=== PATIENT | male | born 1945 | race Caucasian/White ===

== ENCOUNTER 2018-12-04 14:17 | Inpatient (IN) | payer OTHER ==
[2018-12-04] MEDS ORDERED: NS 500 ML IV ONE (14:22)
--- NOTE | 2018-12-04 14:22 | EDPHY ---
HPI/HX/ROS/PE/MDM Narrative: CHIEF COMPLAINT: Chest pressure HPI: This patient is a 73 y/o male with history of hypertension. He arrives today via EMS complaining of sudden onset chest pressure this afternoon following exertion. He states this feels like he has "a large gas burp high in my chest" as well as a dull pain in his chest which radiates towards his back. This is 5/ 10 in severity. He endorses associated shortness of breath. He tried to lie down and rest but this did not relieve his pain. He took 325mg PO ASA at home and called EMS. On EMS arrival, he was tachycardic and hypertensive. EMS administered sublingual nitro as well as 1 of nitro tape. This did help to relieve the patient's symptoms. He denies any known cardiac history. He has never had a stress test in the past. He notes he did have a similar episode two days ago associated with exertion, after which his symptoms resolved spontaneously. REVIEW OF SYSTEMS: A comprehensive 10 system review of systems is otherwise negative aside from elements mentioned in the history of present illness and medical decision making. PMH: Hypertension (lisinopril). Gastric ulcer (omeprazole). SOCIAL HISTORY: . Employed. Lives in [place]. PHYSICAL EXAM: General:Patient is alert, in no acute distress. ENT:Eyes are normal to inspection. ENT inspection normal. Neck: Normal inspection. Full range of motion. Respiratory:No respiratory distress. Breath sounds normal bilaterally. Cardiovascular: Regular rate and rhythm. Strong peripheral pulses. Normal cap refill. Abdomen:The abdomen is nontender to palpation. There are no peritoneal signs. There are normal bowel sounds. Back: Normal to inspection. No tenderness to palpation. Skin: Normal color. No rash. Warm and dry. Extremities: Normal appearance. Full range of motion. Neuro: Oriented x3. Normal motor function. Normal sensory function. ED Course: 73 y/o male presents with chest pressure which began following exertion this afternoon. Symptoms relieved with nitro. He is well-appearing on exam. Plan for EKG, chest x-ray, labs including CBC, chemistries, POC troponin. EKG was ordered and interpreted by myself. Please see [facility] system for official reading. Reviewed laboratory studies. These are largely unremarkable. POC troponin negative at 0.00. Chest x-ray is negative for acute processes. 15:02 Reassessed patient. Discussed negative cardiac workup so far. Discussed admission vs. outpatient cardiology followup. He prefers admission for continued cardiac evaluation. I concur with this. Plan to admit for chest pain workup, will consult with hospitalist service. 15:15 Spoke with hospitalist service. Dr. Hollis accepts admission for chest pain. - Data Points Imaging Results: Imaging Impressions Chest X-Ray 12/04/18 14:22 Impression: Mild peribronchial thickening which can be seen with airways disease /bronchitis or mild fluid overload. Imaging: I viewed and interpreted images myself Laboratory Results: Laboratory Results 12/04/18 14:17 12/04/18 14:17 12/04/18 12/04/18 12/04/18 14:33 14:17 14:17 WBC 9.80 10^3/uL H 10^3/uL (3.80-9.50) RBC 5.08 10^6/uL 10^6/uL (4.40-6.38) Hgb 16.1 g/dL g/dL (13.7-17.5) Hct 47.1 % % (40.0-51.0) MCV 92.7 fL fL (81.5-99.8) MCH 31.7 pg pg (27.9-34.1) MCHC 34.2 g/dL g/dL (32.4-36.7) RDW 13.8 % % (11.5-15.2) Plt Count 204 10^3/uL 10^3/uL (150-400) MPV 9.7 fL fL (8.7-11.7) Neut % (Auto) 62.0 % % (39.3-74.2) Lymph % (Auto) 26.5 % % (15.0-45.0) [place] % (Auto) 8.4 % % (4.5-13.0) Eos % (Auto) 2.0 % % (0.6-7.6) Baso % (Auto) 0.8 % % (0.3-1.7) Nucleat RBC Rel Count 0.0 % % (0.0-0.2) Absolute Neuts (auto) 6.07 10^3/uL 10^3/uL (1.70-6.50) Absolute Lymphs (auto) 2.60 10^3/uL 10^3/uL (1.00-3.00) Absolute Monos (auto) 0.82 10^3/uL H 10^3/uL (0.30-0.80) Absolute Eos (auto) 0.20 10^3/uL 10^3/uL (0.03-0.40) Absolute Basos (auto) 0.08 10^3/uL 10^3/uL (0.02-0.10) Absolute Nucleated RBC 0.00 10^3/uL 10^3/uL (0-0.01) Immature Gran % 0.3 % % (0.0-1.1) Immature Gran # 0.03 10^3/uL 10^3/uL (0.00-0.10) Sodium 139 mEq/L mEq/L (135-145) Potassium 3.8 mEq/L mEq/L (3.5-5.2) Chloride 108 mEq/L mEq/L (97-110) Carbon Dioxide 19 mEq/l L mEq/l (22-31) Anion Gap 12 mEq/L mEq/L (6-14) BUN 16 mg/dL mg/dL (7-23) Creatinine 1.2 mg/dL mg/dL (0.7-1.3) Estimated GFR 59 Glucose 92 mg/dL mg/dL (70-100) Calcium 9.4 mg/dL mg/dL (8.5-10.4) POC Troponin I 0.00 ng/mL ng/mL (0.00-0.08) Medications Given: Discontinued Medications Sodium Chloride (Ns) 500 mls @ 0 mls/hr IV EDNOW ONE; Wide Open PRN Reason: Protocol Stop: 12/04/18 14:23 Last Admin: 12/04/18 14:41 Dose: 500 mls Point of Care Test Results: Chemistry 12/04/18 14:33 POC Troponin I 0.00 ng/mL ng/mL (0.00-0.08) General Initial Vital Signs: Initial Vital Signs Temperature (C) 37 C 12/04/18 14:31 Heart Rate 90 12/04/18 14:31 Respiratory Rate 16 12/04/18 14:31 Blood Pressure 122/84 H 12/04/18 14:31 O2 Sat (%) 95 12/04/18 14:31 O2 Delivery Mode Room Air Allergies/Adverse Reactions: No Known Allergies Allergy (Verified 06/03/12 20:41) Home Medications: Medication Instructions Recorded Aspirin EC [Aspirin EC 325 mg (*)] 325 mg PO ONCE PRN 12/04/18 Lisinopril [Lisinopril] 10 mg PO Q2D 12/04/18 Lisinopril [Lisinopril] 20 mg PO Q2D 12/04/18 Omeprazole 20 mg PO DAILY06 12/04/18 Departure - Departure Disposition: [facility] Inpatient Acute Clinical Impression: Chest pain Qualifiers: Chest pain type: other chest pain Qualified Code(s): R07.89 - Other chest pain Condition: Fair Report Scribed for: Satnam Gillis Report Scribed by: Hortencia Vasquez Date of Report: 12/04/18 Time of Report: 15:00 Physician Review and Approval Statement: Portions of this note were transcribed by an ED scribe. I personally performed the history, physical exam, and medical decision making; and confirm the accuracy of the information in the transcribed note.
[2018-12-04 14:40] LABS: PLATELET COUNT 204 10^3/uL (150-400)
--- NOTE | 2018-12-04 15:12 | CPEKG ---
Test Reason : OPEN Blood Pressure : / mmHG Vent. Rate : 079 BPM Atrial Rate : 079 BPM P-R Int : 151 ms QRS Dur : 087 ms QT Int : 404 ms P-R-T Axes : 033 -87 016 degrees QTc Int : 464 ms Sinus rhythm Inferior infarct, old Confirmed by Satnam Gillis ([id number]) on 12/04/2018 3:11:59 PM Referred By: Satnam Gillis Confirmed By:Satnam Gillis
[2018-12-04] MEDS ORDERED: ONDANSETRON DISINTEGRATING 4 MG TAB PO PRN (16:03)
[2018-12-04] MEDS ORDERED: ACETAMINOPHEN 325 MG TAB PO PRN (16:03)
[2018-12-04] MEDS ORDERED: ONDANSETRON 4 MG/2 ML VIAL IVP PRN (16:03)
[2018-12-04] MEDS ORDERED: NITROGLYCERIN 0.4 MG BTL SL PRN (16:05)
--- NOTE | 2018-12-04 16:17 | PDGENHP ---
History and Physical - Chief Complaint Chest pain - History of Present Illness This is a 73 y/o male w/hx of hypertension and gastric ulcers presenting w/mid- sternal chest pain and associated shortness of breath. He does not have a cardiac history. He reports 2 days prior, he was shoveling gravel when he felt chest pressure and SOB w/mild dizziness and overall weakness. He stopped shoveling gravel but continued on doing something less strenuous and his symptoms resolved after 20 minutes or so. Yesterday, he was exerting himself again and similar symptoms occurred. Today once again exerting himself and felt like he wanted to lie down but his symptoms this time did not alleviate so his called 911 and gave him ASA 325mg. EMS found him to be hypertensive and tachycardiac; he received nitroglycerin sublingual and paste - his symptoms resolved and he is currently CP free and not SOB. He has never experienced these symptoms before. First troponin and EKG unremarkable. Denies nausea, vomiting, fevers, chills, cough. He is being admitted for further testing and monitoring. History Information - Allergies/Home Medication List Allergies/Adverse Reactions: No Known Allergies Allergy (Verified 06/03/12 20:41) Home Medications: Aspirin EC [Aspirin EC 325 mg (*)] 325 mg PO ONCE PRN 12/04/18 [Last Taken 12/04 09:00] Lisinopril [Lisinopril] 10 mg PO Q2D 12/04/18 [Last Taken 12/03/18 06:00] Lisinopril [Lisinopril] 20 mg PO Q2D 12/04/18 [Last Taken 12/04/18 06:00] Omeprazole 20 mg PO DAILY06 12/04/18 [Last Taken 12/04/18 06:00] I have personally reviewed and updated: family history, medical history, social history, surgical history - Past Medical History GI bleed (s/p gastric ulcers), hypertension - Surgical History Reports: no pertinent surgical hx - Family History Additional family history: Mother had atrial fibrillation - Social History Smoking Status: Never smoked (However is constantly around people who do smoke cigarettes) Alcohol Use: Rarely Drug Use: None Additional social history: . Lives in [place]. 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 Review of Systems Review of Systems: ROS: 10pt was reviewed & negative except for what was stated in HPI & below Physical Exam Physical Exam: Lab data and imaging were reviewed. CXR: neg for acute processes EKG: SR, left axis deviation Troponin: 0.00 Temp Pulse Resp BP Pulse Ox 37 C 90 16 122/84 H 95 12/04/18 14:31 12/04/18 14:31 12/04/18 14:31 12/04/18 14:31 12/04/18 14:31 Constitutional: no apparent distress, appears nourished, not in pain Eyes: PERRL, anicteric sclera, EOMI Ears, Nose, Mouth, Throat: moist mucous membranes, hearing normal, ears appear normal, no oral mucosal ulcers Cardiovascular: regular rate and rhythym, no murmur, rub, or gallop, No edema Peripheral Pulses: 2+: dorsalis-pedis (R), dorsalis-pedis (L) Respiratory: no respiratory distress, no rales or rhonchi, clear to auscultation Gastrointestinal: normoactive bowel sounds, soft, non-tender abdomen, no palpable masses Genitourinary: no bladder fullness, no bladder tenderness Skin: warm, normal color, no rashes or abrasions, no fluctuance, no induration, No mottled Musculoskeletal: full muscle strength, no muscle tenderness, normal joint ROM, no joint effusions Neurologic: AAOx3, sensation intact bilaterally, CN II-XII Intact Psychiatric: interacting appropriately, not anxious, not encephalopathic, thought process linear Lymph, Heme, Immunologic: no cervical LAD, no supraclavicular LAD Lab Data & Imaging Review 12/04/18 14:17 12/04/18 14:17 WBC 9.80 10^3/uL (3.80-9.50) H 12/04/18 14:17 RBC 5.08 10^6/uL (4.40-6.38) 12/04/18 14:17 Hgb 16.1 g/dL (13.7-17.5) 12/04/18 14:17 Hct 47.1 % (40.0-51.0) 12/04/18 14:17 MCV 92.7 fL (81.5-99.8) 12/04/18 14:17 MCH 31.7 pg (27.9-34.1) 12/04/18 14:17 MCHC 34.2 g/dL (32.4-36.7) 12/04/18 14:17 RDW 13.8 % (11.5-15.2) 12/04/18 14:17 Plt Count 204 10^3/uL (150-400) 12/04/18 14:17 MPV 9.7 fL (8.7-11.7) 12/04/18 14:17 Neut % (Auto) 62.0 % (39.3-74.2) 12/04/18 14:17 Lymph % (Auto) 26.5 % (15.0-45.0) 12/04/18 14:17 [place] % (Auto) 8.4 % (4.5-13.0) 12/04/18 14:17 Eos % (Auto) 2.0 % (0.6-7.6) 12/04/18 14:17 Baso % (Auto) 0.8 % (0.3-1.7) 12/04/18 14:17 Nucleat RBC Rel Count 0.0 % (0.0-0.2) 12/04/18 14:17 Absolute Neuts (auto) 6.07 10^3/uL (1.70-6.50) 12/04/18 14:17 Absolute Lymphs (auto) 2.60 10^3/uL (1.00-3.00) 12/04/18 14:17 Absolute Monos (auto) 0.82 10^3/uL (0.30-0.80) H 12/04/18 14:17 Absolute Eos (auto) 0.20 10^3/uL (0.03-0.40) 12/04/18 14:17 Absolute Basos (auto) 0.08 10^3/uL (0.02-0.10) 12/04/18 14:17 Absolute Nucleated RBC 0.00 10^3/uL (0-0.01) 12/04/18 14:17 Immature Gran % 0.3 % (0.0-1.1) 12/04/18 14:17 Immature Gran # 0.03 10^3/uL (0.00-0.10) 12/04/18 14:17 Sodium 139 mEq/L (135-145) 12/04/18 14:17 Potassium 3.8 mEq/L (3.5-5.2) 12/04/18 14:17 Chloride 108 mEq/L (97-110) 12/04/18 14:17 Carbon Dioxide 19 mEq/l (22-31) L 12/04/18 14:17 Anion Gap 12 mEq/L (6-14) 12/04/18 14:17 BUN 16 mg/dL (7-23) 12/04/18 14:17 Creatinine 1.2 mg/dL (0.7-1.3) 12/04/18 14:17 Estimated GFR 59 12/04/18 14:17 Glucose 92 mg/dL (70-100) 12/04/18 14:17 Calcium 9.4 mg/dL (8.5-10.4) 12/04/18 14:17 POC Troponin I 0.00 ng/mL (0.00-0.08) 12/04/18 14:33 Assessment & Plan Plan: 73 y/o male presenting w/ exertional chest pressure w/associated shortness of breath and dizziness, prior alleviated w/ rest however today did not alleviate. He was given nitro sublingual + paste which did alleviate his CP. He is asymptomatic now. His vital signs are: BP 122/84, HR 90, Resp 16, 37.0c, 95% RA. Differential diagnoses include but not limited to: stable angina, ACS, PE. #Chest pain w/exertion: Heart score 4 (age, moderately suspicious, risk factors) . -Cycle trop Q6H x 2 -Cycle EKG Q6H x 1, then PRN if symptomatic -Cont tele/PCU monitoring -Nitro PRN if symptomatic -Lipid panel in AM -I considered PE however this seems unlikely based on his clinical presentation and symptoms and EKG. -If above negative, will stress test in AM -Consider cards consult however if above negative, may follow up outpatient #HTN: on lisinopril. #Gastric ulcers: No issues, no acid reflux or indication of bleeding ulcer. On omeprazole Diet: Cardiac, NPO at midnight tonight VTE ppx: SCDs Code: Full Dispo: Admit to obs
[2018-12-04] MEDS ORDERED: MAG HYDROX/AL HYDROX/SIMETH 30 ML UDCUP PO ONE (17:08)
[2018-12-04] MEDS ORDERED: LIDOCAINE 2% VISCOUS 15 ML UDCUP PO ONE (17:08)
[2018-12-04] MEDS ORDERED: HYOSCYAMINE SULFATE 0.125 MG TAB PO ONE (17:08)
--- NOTE | 2018-12-04 17:10 | HOSPPROG ---
Hospitalist Progress Note Assessment/Plan: I have personally seen and evaluated Satnam Lake. I agree with the assessment and plan as outline by [employer] OPERATOR Brandy Castro, in a separate note. Initial Troponin was negative, repeat 2.96. Spoke with construction supervisor brake adjuster, Dr. Madrid, recommended Heparin gtt, Metoprolol 25 mg BID, NPO after midnight for LHC tomorrow AM. If patient has recurrence of chest pain, call cardiology for emergent/urgent LHC. Objective: Vital Signs Temp Pulse Resp BP Pulse Ox 36.7 C 67 18 130/83 H 97 12/04/18 16:36 12/04/18 16:36 12/04/18 16:36 12/04/18 16:36 12/04/18 16:36 ICD10 Worksheet Patient Problems: Problems Problem Status Onset Chest pain Acute
[2018-12-04] MEDS ORDERED: HEPARIN 10,000 UNIT/10 ML MDV (1,000 UNIT/ML) IVP ONE (21:26)
[2018-12-04] MEDS ORDERED: HEPARIN 10,000 UNIT/10 ML MDV (1,000 UNIT/ML) IVP PRN (21:26)
[2018-12-04] MEDS ORDERED: HEPARIN/DEXTROSE 500 ML IV SCH (21:30)
[2018-12-04 21:55] LABS: PLATELET COUNT 184 10^3/uL (150-400)
[2018-12-04 22:05] LABS: INR 1.02 (0.83-1.16)
[2018-12-04] MEDS: METOPROLOL TARTRATE 25 MG TAB PO SCH (22:30)
[2018-12-05 05:35] LABS: PLATELET COUNT 159 10^3/uL (150-400)
[2018-12-05] MEDS ORDERED: PANTOPRAZOLE SODIUM 40 MG TAB PO SCH (06:00)
--- NOTE | 2018-12-05 07:39 | PDPROPOC ---
Sedation Plan of Care Sedation Plan of Care: mental status noted, patient educated of risks, benefits , alternatives, patient can tolerate sedation ASA Classification: ASA 2 Planned drugs: fentanyl, midazolam Mallampati Score: Class 2 Mallampati Reference Image: Patient passed 3-3-2 rule?: Yes
--- NOTE | 2018-12-05 07:40 | PDHPUP ---
History & Physical Update H&P update statement: This history and physical update is based on an assessment of the patient which was completed after admission or registration (within 24 hours), but prior to the surgery/procedure. H&P update: H&P reviewed & patient examined, no change in patient's condition since H&P completed
[2018-12-05] MEDS ORDERED: NS 1,000 ML IV ONE (08:02)
[2018-12-05] MEDS ORDERED: FAMOTIDINE 20 MG TAB PO ONE (08:02)
[2018-12-05] MEDS ORDERED: DIAZEPAM 5 MG TAB PO ONE (08:02)
[2018-12-05] MEDS ORDERED: ASPIRIN EC 325 MG TAB PO ONE (08:02)
[2018-12-05] MEDS ORDERED: diphenhydrAMINE 25 MG CAP PO ONE (08:02)
--- NOTE | 2018-12-05 08:09 | GCON ---
[f rep st] CONSULTATION CARDIOLOGY CONSULT DATE OF CONSULTATION: 12/04/2018 CHIEF COMPLAINT: Chest pain. HPI: This is a 73-year-old male with a history of hypertension and GERD who presents to [facility] with com plaints of midsternal chest pain associated with shortness of breath radiating to his left arm. The patient denies any prior cardiac history. The patient indicates that this pain did start, initially, 2 days prior to the presentation when he was shoveling gravel. He continued to proceed with this, t anh, as the pain did resolve with rest. However, yesterday, and going to today, the patient's pain started coming on with less exertion. The patient came to the emergency room where he was found to be hypertensive and tachycardic, received nitroglycerin. The chest pain did resolve, but he does ind icate, with exertion, he does get the discomfort back again. His troponin was normal, initially, but then moris to 2.9. Of note, his ECG did not show any acute ST changes. Currently, the patient is on a heparin drip and denies any current pain. PAST MEDICAL HISTORY: GERD, hypertension. HOME MEDICATIONS: 1. Aspirin. 2. Lisinopril. 3. Omeprazole. SOCIAL HISTORY: Occasional alcohol. No smoking. . Works and lives in [place]. FAMILY HISTORY: Apparently, there is a history of arrhythmia in the maternal side. REVIEW OF SYSTEMS: The patient, currently, denies any visual changes. No neck pain and no ear pain. No head pain and no throat pain. No current shortness of breath. No current chest pain. No back pain. No lower extremity pain. No abdominal pain. PHYSICAL EXAMINATION: VITAL SIGNS: Afebrile at 96, blood pressure 130/70. The heart rate is 72, re spiratory rate is 12. Saturating 95% on room air. HEENT: Pupils equal and reactive to light and ac commodation. Extraocular movements intact. CARDIOVASCULAR: Regular rate and rhythm. S1, S2. LUNG S: Clear to auscultation bilaterally. ABDOMEN: Soft, nontender. No guarding. EXTREMITIES: No cl ubbing, no cyanosis, no edema. NEUROLOGIC: The patient is alert and oriented x3. DATA REVIEWED: Laboratory values currently show white cells 8.6, hemoglobin 13.8, hematocrit 40.7, p latelet count of 159. Creatinine of 1.1, potassium 3.8. LDL cholesterol 112. Troponin of 1.2. ASSESSMENT/PLAN: 1. Chest pain/[id number] myocardial infarction. 2. At this time, the patient appears to have classic anginal symptoms with elevated troponin levels. I feel we should proceed with a left heart catheterization for further delineation of underlying co ronary anatomy but will obtain an echocardiogram prior to the catheterization. I explained the risks /complications of the procedure, including bleeding, infection, stroke and possible , and the pa tient would like to proceed. Further orders following clinical course. /[id number]/MODL
[2018-12-05] MEDS ORDERED: LIDOCAINE 1% 300 MG/30 ML SDV ONE (08:38)
[2018-12-05] MEDS ORDERED: fentaNYL 100 MCG/2 ML INJ ONE ×2 (08:38→13:44)
[2018-12-05] MEDS ORDERED: IOPAMIDOL (ISOVUE-370) 150 ML BTL IV ONE (08:38)
[2018-12-05] MEDS ORDERED: MIDAZOLAM 2 MG/2 ML VIAL ONE (08:38)
[2018-12-05] MEDS ORDERED: EPINEPHrine 1 MG/10 ML SYR IVP ONE (08:43)
[2018-12-05] MEDS ORDERED: ATROPINE SULFATE 1 MG/10 ML SYR ONE (08:43)
[2018-12-05] MEDS ORDERED: BIVALIRUDIN 250 MG/5 ML VIAL IV ONE (08:43)
[2018-12-05] MEDS ORDERED: ASPIRIN EC 81 MG TAB PO SCH (09:00)
[2018-12-05] MEDS ORDERED: LISINOPRIL 20 MG TAB PO SCH (09:00)
[2018-12-05] MEDS ORDERED: CLOPIDOGREL BISULFATE 75 MG TAB ONE (09:22)
--- NOTE | 2018-12-05 10:27 | ECHO ---
[email or web address] [address] [address] Main: [phone] Echocardiography Examination Transthoracic Name: TERRANCE JARQUIN MR#: [id number] Study Date: 12/05/2018 Study Time: 07:56 AM Date of : 1945 Age: 73 year(s) Height: 170.2 cm (67 in.) Weight: 90.27 kg (199 lb.) BSA: 2.02 m2 Gender: Male Examination: Echo Contrast: Image Quality: Adequate Rhythm: Heart Rate: BP: 90 mmHg/61 mmHg Indication: Chest Pain Procedure Staff Referring Physician: Central Services Tech: Nadine Karimi RDCS Reading Physician: Rosalio Madrid MD Requesting Provider: Indication: Chest Pain Measurements Chambers AV/MV Label Value Normal Value Label Value Normal Value LVOTd 1.9 cm (1.9cm - 2.1cm) AV PGmean 3 mmHg LVOT VTI 15.1 cm (18cm - 22cm) MARCE (VTI) 2.3 cm2 LVDd, 2D 3.7 cm (4.2cm - 5.9cm) MV E Vmax 0.89 m/s LVDs, 2D 2.5 cm (2.1cm - 4cm) MV A Vmax 0.78 m/s IVSd, 2D 1 cm (0.6cm - 1.1cm) MV E/A 1.14 LVPWd, 2D 0.9 cm (0.6cm - 1cm) MV E/E' lateral 8.9 LVEF, 2D 63 % (54% - 74%) MV E/E' septal 11.4 (0.45 - 1.25) LVOT PGmean 2 mmHg MV DT 218 ms LVOT Vmean 0.62 m/s MV E' septal 0.08 m/s RVDd, 2D 2.9 cm (1.9cm - 3.8cm) MV PHT 0.07 s LA Volume, BP 34 ml (18ml - 58ml) MVA PHT 3.2 cm2 LADs, 2D 3 cm (3cm - 4cm) MV E' lateral 0.1 m/s LAESV index, BP 16.8 ml/m2 MV E/E' mean 9.89 RA Area 12.4 cm2 MV PHT 68 ms Additional Vessels MV E' mean 0.09 m/s Label Value Normal Value TV/PV AoAsc 3 cm Label Value Normal Value AoRoot, 2D 3.2 cm (1.4cm - 2.6cm) RA Pressure 5 mmHg IVC 1.9 cm (1.2cm - 2.3cm) RVSP 27 mmHg TR Pmax 22 mmHg Patient: TERRANCE CURRENT Study Date: 12/05/2018 Page 1 of 2 07:56 AM TR Vmax 2.35 m/s PV PGmax 1 mmHg PV Vmax, Caliper 0.58 m/s (0.6m/s - 0.9m/s) Conclusions Normal left ventricular size and function. LVEF estimated at 55-60%. Normal left ventricular free wall thickness. Mild septal hypokinesis. Normal-appearing valvular structures. Mild mitral regurgitation. Mild tricuspid regurgitation with a normal estimated RVSP. No prior studies. Findings Left Ventricle: Left ventricle is normal in size. Normal global systolic left ventricular function. EF range is estimated at 55 % - 60 %. Left ventricle wall thickness is normal. Slight mid septal dyskinesis, possible apical hypokinesis. Right Ventricle: Normal size right ventricle. Right ventricular systolic function is normal. Left Atrium: The left atrium is normal in size. Right Atrium: The right atrium is normal in size. Mitral Valve: Mitral valve appears structurally normal. Mild mitral regurgitation. No mitral valve stenosis. Aortic Valve: Aortic leaflets are structurally normal. No significant aortic valve regurgitation. There is no aortic stenosis. Tricuspid Valve: Tricuspid valve leaflets are structurally normal. Mild tricuspid regurgitation. No tricuspid valve stenosis. Right Ventricular systolic pressure is measured at 27 mmHg. Pulmonary artery pressure normal. Pulmonic Valve: Pulmonic leaflets are structurally normal. Aorta: The aortic root size in 2D measures 3.2 cm. The ascending aorta measures 3.0 cm. Aorta Measurements AoRoot, 2D is 3.2 cm. IVC: The inferior vena cava is normal in size. Pericardium: No pericardial effusion. Exam Details Procedure Ordered: Echo Procedure Status: Routine study Image Quality: Adequate Facility Location: Cardiac Echo 1 (No Signature Object) Patient: TERRANCE JARQUIN Study Date: 12/05/2018 Page 2 of 2 07:56 AM [id number]
--- NOTE | 2018-12-05 10:47 | PDGENHP ---
History and Physical - Chief Complaint CAD - History of Present Illness 73M with unstable angina s/p LHC today revealing CAD in need of surgical revascularization. Pt currently in CVC with family, too sedated to answer questions, but resting comfortably with stable HD. History Information - Allergies/Home Medication List Allergies/Adverse Reactions: No Known Allergies Allergy (Verified 06/03/12 20:41) Home Medications: Aspirin EC [Aspirin EC 325 mg (*)] 325 mg PO ONCE PRN 12/04/18 [Last Taken 12/04 09:00] Lisinopril [Lisinopril] 10 mg PO Q2D 12/04/18 [Last Taken 12/03/18 06:00] Lisinopril [Lisinopril] 20 mg PO Q2D 12/04/18 [Last Taken 12/04/18 06:00] Omeprazole 20 mg PO DAILY06 12/04/18 [Last Taken 12/04/18 06:00] I have personally reviewed and updated: medical history, social history, surgical history - Past Medical History coronary artery disease, GI bleed (s/p gastric ulcers), hypertension - Surgical History Reports: no pertinent surgical hx - Family History Additional family history: Mother had atrial fibrillation - Social History Smoking Status: Never smoked (However is constantly around people who do smoke cigarettes) Alcohol Use: Rarely Drug Use: None Additional social history: . Lives in [place]. 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 Review of Systems Review of Systems: ROS: 10pt was reviewed & negative except for what was stated in HPI & below Constitutional: Reports: no symptoms EENMT: Reports: no symptoms Cardiac: Reports: no symptoms Respiratory: Reports: no symptoms Gastrointestinal: Reports: no symptoms Genitourinary: Reports: no symptoms Muscolosketal: Reports: no symptoms Skin: Reports: no symptoms Neurological: Reports: no symptoms Physical Exam Physical Exam: Temp Pulse Resp BP Pulse Ox 36.9 C 71 16 90/61 L 96 12/05/18 07:26 12/05/18 07:26 12/05/18 07:26 12/05/18 07:26 12/05/18 07:26 Constitutional: no apparent distress, appears nourished, not in pain Eyes: anicteric sclera Ears, Nose, Mouth, Throat: moist mucous membranes, hearing normal Cardiovascular: regular rate and rhythym Respiratory: no respiratory distress Gastrointestinal: soft, non-tender abdomen Skin: warm, normal color Musculoskeletal: full muscle strength Psychiatric: interacting appropriately, not anxious, other (mildy sedated ) Lab Data & Imaging Review 12/05/18 05:00 12/05/18 05:00 WBC 8.63 10^3/uL (3.80-9.50) 12/05/18 05:00 RBC 4.28 10^6/uL (4.40-6.38) L 12/05/18 05:00 Hgb 13.8 g/dL (13.7-17.5) 12/05/18 05:00 Hct 40.7 % (40.0-51.0) 12/05/18 05:00 MCV 95.1 fL (81.5-99.8) 12/05/18 05:00 MCH 32.2 pg (27.9-34.1) 12/05/18 05:00 MCHC 33.9 g/dL (32.4-36.7) 12/05/18 05:00 RDW 13.7 % (11.5-15.2) 12/05/18 05:00 Plt Count 159 10^3/uL (150-400) 12/05/18 05:00 MPV 9.3 fL (8.7-11.7) 12/05/18 05:00 Neut % (Auto) 62.9 % (39.3-74.2) 12/05/18 05:00 Lymph % (Auto) 24.3 % (15.0-45.0) 12/05/18 05:00 Limestone % (Auto) 9.5 % (4.5-13.0) 12/05/18 05:00 Eos % (Auto) 2.4 % (0.6-7.6) 12/05/18 05:00 Baso % (Auto) 0.7 % (0.3-1.7) 12/05/18 05:00 Nucleat RBC Rel Count 0.0 % (0.0-0.2) 12/05/18 05:00 Absolute Neuts (auto) 5.42 10^3/uL (1.70-6.50) 12/05/18 05:00 Absolute Lymphs (auto) 2.10 10^3/uL (1.00-3.00) 12/05/18 05:00 Absolute Monos (auto) 0.82 10^3/uL (0.30-0.80) H 12/05/18 05:00 Absolute Eos (auto) 0.21 10^3/uL (0.03-0.40) 12/05/18 05:00 Absolute Basos (auto) 0.06 10^3/uL (0.02-0.10) 12/05/18 05:00 Absolute Nucleated RBC 0.00 10^3/uL (0-0.01) 12/05/18 05:00 Immature Gran % 0.2 % (0.0-1.1) 12/05/18 05:00 Immature Gran # 0.02 10^3/uL (0.00-0.10) 12/05/18 05:00 PT 13.0 SEC (12.0-15.0) 12/04/18 21:46 INR 1.02 (0.83-1.16) 12/04/18 21:46 APTT 30.7 SEC (23.0-38.0) 12/04/18 21:46 Heparin Anti-Xa, Unfract 0.45 IU/mL (0.32-0.67) 12/05/18 05:00 Sodium 139 mEq/L (135-145) 12/05/18 05:00 Potassium 3.8 mEq/L (3.5-5.2) 12/05/18 05:00 Chloride 113 mEq/L (97-110) H 12/05/18 05:00 Carbon Dioxide 18 mEq/l (22-31) L 12/05/18 05:00 Anion Gap 8 mEq/L (6-14) 12/05/18 05:00 BUN 16 mg/dL (7-23) 12/05/18 05:00 Creatinine 1.1 mg/dL (0.7-1.3) 12/05/18 05:00 Estimated GFR > 60 12/05/18 05:00 Glucose 92 mg/dL (70-100) 12/05/18 05:00 Calcium 8.4 mg/dL (8.5-10.4) L 12/05/18 05:00 Total Bilirubin 0.8 mg/dL (0.1-1.4) 12/05/18 05:00 AST 33 IU/L (17-59) 12/05/18 05:00 ALT 39 IU/L (21-72) 12/05/18 05:00 Alkaline Phosphatase 63 IU/L (38-126) 12/05/18 05:00 POC Troponin I 0.00 ng/mL (0.00-0.08) 12/04/18 14:33 Troponin I 1.220 ng/mL (0.000-0.034) H 12/05/18 05:00 Total Protein 5.7 g/dL (6.3-8.2) L 12/05/18 05:00 Albumin 3.1 g/dL (3.5-5.0) L 12/05/18 05:00 Triglycerides 115 mg/dL (40-150) 12/05/18 05:00 Cholesterol 172 mg/dL (140-220) 12/05/18 05:00 Cholesterol Risk Factr 1.0 (0.2-1.0) 12/05/18 05:00 LDL Cholesterol, Calc 112 mg/dL (80-100) H 12/05/18 05:00 LDL Risk Factor 1.0 (0.2-1.0) 12/05/18 05:00 VLDL Cholesterol 23 mg/dL (8-25) 12/05/18 05:00 Non-HDL Cholesterol 135 mg/dL (90-129) H 12/05/18 05:00 HDL Cholesterol 37 mg/dL (40-65) L 12/05/18 05:00 LDL/HDL Ratio 3.03 RATIO (1.00-3.64) 12/05/18 05:00 Cholesterol/HDL Ratio 4.65 RATIO (1.00-4.97) 12/05/18 05:00 Visualized and Interpreted Chest x-ray results: Yes Chest X-Ray results: no infiltrate Visualized and Interpreted imaging results: Yes Interpretation: see TTE and LHC reports in [facility] EKG Interpretation: Positive for: normal sinsus rhythm Assessment & Plan Plan: 73M with angina and severe 2-vessel CAD in need of surgical revascularization - Possible CABG this afternoon as per Dr. Mercado - NPO until decision made - Type/Screen and carotid u/s pending
--- NOTE | 2018-12-05 11:17 | ASMTCMCOM ---
CM Note CM Note Notes: Pts case discussed in tx rounds. Pt is a 73 y/o man admitted for chest pain. Pt is getting a cath. PT has been ordered and awaiting recommendations. Pt should be able to d/c without any needs. CM to follow. Plan: TBD Date Signed: 12/05/2018 11:16 AM Electronically Signed By:PHILIPPE Cowart
[2018-12-05] MEDS: METOPROLOL TARTRATE 25 MG TAB PO SCH (11:37)
--- NOTE | 2018-12-05 11:39 | CPIP ---
[f rep st] INVASIVE CARDIAC PROCEDURE DATE OF PROCEDURE: 12/05/2018 INDICATION FOR PROCEDURE: Non-ST segment elevation myocardial infarction. PROCEDURE: 1. Nonselective right groin sheathogram. 2. Bilateral coronary angiography. 3. Left heart catheterization. 4. Left ventriculogram. HISTORY: Briefly, this is a 73-year-old male with history of hypertension who was admitted for chest pain. The patient was found to have elevated troponin levels. Patient was consented for cardiac ca theterization. DESCRIPTION OF PROCEDURE: After informed consent, the patient was brought to [facility] where the right fawn in was prepped and draped in sterile fashion. Using lidocaine, a short 6-Libyan sheath in the right common femoral artery verified angiographically. Through this 6-Libyan sheath, a JL4 catheter was adv anced to the left coronary artery. Images of the left coronary artery revealed narrow, but patent os tial left main. Left circumflex artery was patent proximally; however, in the mid circumflex, there was a tubular 70% lesion distally. The vessel appeared to be largely patent. The LAD had a high-gra de, at least 70% hazy lesion right after the proximal takeoff. Just after the takeoff of this lesion , there was a heavily diseased, but large septal financial administrative assistant. In the mid LAD, there was another area of 80% to 90% tubular stenosis. Distally, the vessel had an area of 40% disease around the apical se gment, but otherwise was patent. After these images were obtained, the JL4 catheter was removed. The JR4 catheter was advanced to the right coronary artery. Images of the right coronary artery reve aled normal ostial, proximal RCA. RPD and RPLS had mild 20% to 30% disease, but otherwise was patent . Of note, there was the takeoff of a high conus branch, which had a 70% to 80% lesion in its mid po rtion. After these images were obtained, the JR4 catheter was removed. A pigtail catheter was advanced to left ventricle. EDP is 15 mmHg. Left ventriculogram in the LIU p rojection showed an EF of 65% with no wall motion abnormalities. No pullback gradient between the LV and aorta. Pigtail catheter was removed over the 0.035 wire. Right groin was closed with 6-Libyan Angio-Seal. The patient tolerated the procedure well with no complications. IMPRESSION: 1. Severe double-vessel coronary artery disease. 2. Normal ejection fraction. PLAN: Given the diffuse nature of the patient's LAD disease, including the proximal and mid section, as well as a large diseased septal perforators coming off the proximal LAD lesion, as well as the mi d left circumflex lesion, I feel the patient would be better suited with a surgical consultation, sec ondary to the fact that any PCI of the LAD could result in snow plow effect of plaque into the septal financial administrative assistant and shutting this vessel down. Additionally, the mid distal LAD lesion is a significant narrowing and does taper thus making stent sizing potentially difficult. We will have the patient ev aluated by CT Surgery later this morning and further orders to follow clinical course. /[id number]/MODL
[2018-12-05] MEDS ORDERED: VERAPAMIL 5 MG, NITROGLYCERIN 2.5 MG, HEPARIN 500 UNIT, SODIUM BICARBONATE 0.2 MEQ in L... MISC ONE (12:34)
[2018-12-05] MEDS ORDERED: MUPIROCIN 2% 22 GM OINT NS ONE (12:34)
[2018-12-05] MEDS ORDERED: CARDIOPLEGIC SOLUTION 1,052.8 ML PF ONE (12:34)
[2018-12-05] MEDS ORDERED: AMINOCAPROIC ACID 5 GM/20 ML VIAL IV ONE (12:34)
[2018-12-05] MEDS ORDERED: CITRATE DEXTROSE SOLN 500 ML BAG MISC ONE (12:34)
[2018-12-05] MEDS ORDERED: INSULIN REGULAR HUMAN 100 UNIT in NS 100 ML IV ONE (12:34)
[2018-12-05] MEDS ORDERED: PHENYLEPHRINE HCL 50 MG in NS 250 ML IV ONE (12:34)
[2018-12-05] MEDS ORDERED: NOREPINEPHRINE BITARTRATE 16 MG in NS 250 ML IV ONE (12:34)
[2018-12-05] MEDS ORDERED: MANNITOL 25% 12.5 GM/50 ML VIAL IVP ONE (12:34)
[2018-12-05] MEDS ORDERED: ceFAZolin 2 GM/DEXTROSE 100 ML IV ONE (12:34)
[2018-12-05] MEDS ORDERED: niCARdipine/NACL 200 ML IV ONE (12:36)
[2018-12-05] MEDS ORDERED: CHLORHEXIDINE GLUC HIBICLENS 118 ML BTL TP ONE (12:37)
[2018-12-05] MEDS ORDERED: PROTAMINE SULFATE 50 MG/5 ML VIAL IVP ONE (13:12)
[2018-12-05] MEDS ORDERED: ALBUMIN 5% 250 ML BOTTLE IV ONE ×2 (13:12→16:40)
[2018-12-05] MEDS ORDERED: MILRINONE/DEXTROSE/100 ML BAG IV ONE (13:12)
[2018-12-05] MEDS ORDERED: CALCIUM CHLORIDE 1 GM/10 ML INJ ONE (13:12)
[2018-12-05] MEDS ORDERED: HEPARIN 10,000 UNIT/10 ML MDV (1,000 UNIT/ML) ONE (13:13)
[2018-12-05] MEDS ORDERED: NA BICARBONATE 50 MEQ/50 ML VIAL ONE ×2 (13:13→17:51)
[2018-12-05] MEDS ORDERED: AMINOCAPROIC ACID 5 GM/20 ML VIAL ONE (13:13)
[2018-12-05] MEDS ORDERED: LIDOCAINE 2% 100 MG/5 ML SYR ONE ×2 (13:13→13:45)
[2018-12-05] MEDS ORDERED: ADENOSINE 6 MG/2 ML VIAL ONE (13:14)
[2018-12-05] MEDS ORDERED: methylPREDNISolone SOD SUCC 1 GM/8 ML VIAL ONE (13:14)
[2018-12-05] MEDS ORDERED: DOPamine/DEXTROSE 400 MG/250 ML BAG IV ONE (13:14)
[2018-12-05] MEDS ORDERED: niCARdipine/NACL/200 ML BAG IV ONE ×2 (13:14→17:06)
[2018-12-05] MEDS ORDERED: AMIODARONE HCL 150 MG/3 ML VIAL ONE (13:14)
[2018-12-05] MEDS ORDERED: CITRATE DEXTROSE SOLN 500 ML BAG ONE (13:14)
[2018-12-05] MEDS ORDERED: MAGNESIUM SULFATE 1 GM/2 ML VIAL ONE (13:14)
[2018-12-05] MEDS ORDERED: ceFAZolin 1 GM VIAL ONE (13:15)
[2018-12-05] MEDS ORDERED: NITROGLYCERIN/D5W 50 MG/250 ML BOTTLE IV ONE (13:15)
[2018-12-05] MEDS ORDERED: LR 1,000 ML IV ONE (13:16)
[2018-12-05] MEDS ORDERED: VERAPAMIL 5 MG/2 ML VIAL ONE (13:17)
[2018-12-05] MEDS ORDERED: PAPAVERINE HCL 60 MG/2 ML SDV ONE (13:17)
[2018-12-05] MEDS ORDERED: MINERAL OIL 10 ML VIAL ONE (13:17)
[2018-12-05] MEDS ORDERED: PROPOFOL/EMULSION 500 MG/50 ML BOTTLE IV ONE (13:44)
[2018-12-05] MEDS ORDERED: DEXAMETHASONE 4 MG/ML VIAL ONE ×2 (13:44)
[2018-12-05] MEDS ORDERED: REMIFENTANIL HCL 1 MG VIAL ONE (13:44)
[2018-12-05] MEDS ORDERED: ROCURONIUM 100 MG/10 ML VIAL ONE (13:44)
[2018-12-05] MEDS ORDERED: ONDANSETRON 4 MG/2 ML VIAL ONE (13:45)
[2018-12-05] MEDS ORDERED: LIDOCAINE HCL 160 MG/4 ML LTA KIT TP ONE (13:47)
[2018-12-05] MEDS ORDERED: SUGAMMADEX SODIUM 200 MG/2 ML VIAL IVP ONE (15:50)
[2018-12-05] MEDS ORDERED: DEXMEDETOMIDINE HCL 400 MCG in NS 100 ML IV SCH (16:00)
[2018-12-05] MEDS ORDERED: MEPERIDINE 25 MG/0.5 ML AMP IVP PRN (16:39)
[2018-12-05] MEDS ORDERED: ACETAMINOPHEN 650 MG SUPP PR PRN (16:39)
[2018-12-05] MEDS ORDERED: CEPACOL LOZENGE PO PRN (16:39)
[2018-12-05] MEDS ORDERED: ALBUMIN 5% 250 ML IV PRN (16:39)
[2018-12-05] MEDS ORDERED: LACTULOSE 20 GM/30 ML UDCUP PO PRN (16:39)
[2018-12-05] MEDS ORDERED: ACETAMINOPHEN 325 MG TAB PO PRN (16:39)
[2018-12-05] MEDS ORDERED: POLYETHYLENE GLYCOL 3350 17 GM PKT PO PRN (16:39)
[2018-12-05] MEDS ORDERED: PANTOPRAZOLE SODIUM 40 MG VIAL IVP ONE (16:39)
[2018-12-05] MEDS ORDERED: SODIUM CL NASAL 45 ML BTL EACHNARE PRN (16:39)
[2018-12-05] MEDS ORDERED: D50W 25 GM/50 ML SYR IVP PRN (16:39)
[2018-12-05] MEDS ORDERED: MAGNESIUM HYDROXIDE 30 ML UDCUP PO PRN (16:39)
[2018-12-05] MEDS ORDERED: METOCLOPRAMIDE 10 MG/2 ML VIAL IVP PRN (16:39)
[2018-12-05] MEDS ORDERED: BISACODYL 10 MG SUPP PR PRN (16:39)
[2018-12-05] MEDS ORDERED: NS 1,000 ML IV SCH (16:45)
[2018-12-05] MEDS ORDERED: INSULIN REGULAR HUMAN 100 UNIT in NS 100 ML IV SCH (17:00)
[2018-12-05] MEDS ORDERED: niCARdipine/NACL 200 ML IV SCH (17:30)
[2018-12-05] MEDS: fentaNYL 100 MCG/2 ML INJ IVP PRN (17:50)
[2018-12-05] MEDS ORDERED: NA BICARBONATE 50 MEQ/50 ML VIAL IV ONE ×2 (18:00→20:30)
[2018-12-05] MEDS ORDERED: ALBUMIN 5% 500 ML IV ONE (20:30)
[2018-12-05] MEDS: POTASSIUM Cl (KCl) 50 ML IV PRN ×2 (20:47→20:49)
--- NOTE | 2018-12-05 20:52 | HOSPPROG ---
Hospitalist Progress Note Assessment/Plan: DIAGNOSES: * Acute Coronary Syndrome * Diffuse CAD * s/p CABG 12/05; now in ICU extubated with stable vitals, no bleeding, good O2 sats, still in process of waking up * Blood sugar management - is currently doing well on insulin drip * Essential HTN PLANS: * continue insulin drip, I will follow sugars and manage as needed * routine post op care per [facility] * ASA, statin * change to inpatient status The patient had a relatively quiet night, with peak in troponin and trend down by this am. No CHF or arrythmia Angiography showed Diffuse CAD, surgery recommended and he has gone to OR SUBJECTIVE: no recurrent angina or CHF sxs OBJECTIVE: stable vitals thru night now stable in ICU post op preop alert relaxed no signs CHF post op in icu: still waking up during my exam, family at bedside resps good on NC O2 skin warm dry good color no signs bleeding vitals all stable sugar 142 on drip Objective: Vital Signs Temp Pulse Resp BP Pulse Ox 36.3 C 63 15 116/65 92 12/05/18 17:00 12/05/18 20:06 12/05/18 20:06 12/05/18 20:06 12/05/18 20:06 Laboratory Results 12/05/18 05:00 12/05/18 05:00 12/04/18 12/05/18 12/06/18 06:59 06:59 06:59 Intake Total 450 300 Output Total 1240 Balance 450 -940 PT 13.0 SEC (12.0-15.0) 12/04/18 21:46 INR 1.02 (0.83-1.16) 12/04/18 21:46 - Time Spent With Patient Time Spent with Patient: greater than 35 minutes Time Spent with Patient: Greater than 35 minutes spent on this patients care, greater than 50% of time spent counseling, educating, and coordinating care regarding the above mentioned plan. ICD10 Worksheet Patient Problems: Problems Problem Status Onset Acute blood loss anemia Acute Chest pain Acute S/P CABG x 2 Acute S/P left atrial appendage ligation Acute
[2018-12-05] MEDS: MUPIROCIN 2% 22 GM OINT NS SCH (21:12)
[2018-12-05] MEDS: ceFAZolin 2 GM/DEXTROSE 100 ML IV SCH (21:30)
--- NOTE | 2018-12-05 21:46 | GOP ---
[f rep st] OPERATIVE REPORT DATE OF OPERATION: 12/05/2018 SURGEON: Arsalan Mercado DO SUPERINTENDENT COLLIERY: Mejia Herrera P.A.-C. ANESTHESIOLOGIST: Dr. Hooper. PREOPERATIVE DIAGNOSIS: Non-Q-wave myocardial infarction with severe 2-vessel disease. POSTOPERATIVE DIAGNOSIS: Non-Q-wave myocardial infarction with severe 2-vessel disease. PROCEDURE PERFORMED: 1. Coronary bypass grafting x2, left internal mammary artery to the distal left anterior descending, saphenous vein graft to the distal circumflex. 2. Endoscopic vein harvest. 3. Ligation of left atrial appendage. FINDINGS: DESCRIPTION OF PROCEDURE: The patient was brought to the operating room, intubated, monitoring lines were placed. He was prepped and draped in sterile classical manner. Sternotomy was performed. Maribell jony and vein were harvested endoscopically by JOSÉ Castillo, who first assisted throughout the [facility]. The conduits were excellent. LV function was normal. Heart size was normal. Aorta was wi thout calcification. He was heparinized. Cannulated bypass was begun. A cardioplegic arrest was ob tained with antegrade cardioplegia utilizing [place] solution and topical hypothermia. Distals were performed with a cross-clamp on, as were the proximals. We then ligated the left atrial appendage w hich had a thin base with Endoloops x3. We incised the distal tip to make sure that it was not paten t. The cross-clamp was removed with suction on the ascending aortic vent. Spontaneous cardiac activ ity was noted to resume. The patient was rewarmed and weaned from bypass. Heparin was reversed with protamine. Cannula was removed and oversewn. Two ventricular pacing wires, 1 left pleural and 1 me diastinal drain were placed, thymic fat and pericardium were closed. Chest was closed in standard fa shion. Patient was extubated in the OR and returned to ICU in stable condition. /[id number]/MODL
[2018-12-06] MEDS: POTASSIUM Cl (KCl) 50 ML IV PRN (00:21)
[2018-12-06] MEDS: fentaNYL 100 MCG/2 ML INJ IVP PRN (02:52)
[2018-12-06 05:52] LABS: PLATELET COUNT 116 10^3/uL (150-400)
[2018-12-06] MEDS: HEPARIN 5,000 UNIT/0.5 ML INJ SC SCH ×3 (06:38→21:07)
[2018-12-06] MEDS: HYDROCODONE/APAP 5/325 TAB PO PRN ×3 (06:38→19:34)
--- NOTE | 2018-12-06 06:51 | SOAPPROG ---
SOAP Progress Note Assessment/Plan: POD #1: urgent CABGx2 (STROUD-LAD, SVG-circ), EVH right leg, suture ligation ANDREW NSTEMI/unstable angina/severe 2-vessel CAD s/p urgent CABGx2 - CTs to bulb suction, AL/FC out - BB/ASA/statin for secondary prevention when appropriate Acute post-op blood loss anemia - Stable without the need for transfusions DVT prophylaxis - Heparin SQ, SCDs Disposition - PCU Subjective: Has some incisional pain. Denies SOB. Objective: Vital Signs Temp Pulse Resp BP Pulse Ox 36.0 C 78 12 90/48 L 94 12/05/18 21:00 12/06/18 06:46 12/06/18 06:46 12/06/18 06:46 12/06/18 06:46 Laboratory Results 12/06/18 05:40 12/06/18 05:40 12/05/18 12/06/18 12/07/18 05:59 05:59 05:59 Intake Total 450 2140 Output Total 2325 Balance 450 -185 PT 13.0 SEC (12.0-15.0) 12/04/18 21:46 INR 1.02 (0.83-1.16) 12/04/18 21:46 Physical Exam - Physical Exam General Appearance: WD/WN, alert, no apparent distress EENT: No scleral icterus (R), No scleral icterus (L) Neck: normal inspection Respiratory: No respiratory distress Cardiac/Chest: regular rate, rhythm Abdomen: non-tender, soft, No distended Skin: normal color, warm/dry Extremities: No pedal edema Neuro/Psych: no motor/sensory deficits, alert, normal mood/affect, oriented x 3 ICD10 Worksheet Patient Problems: Problems Problem Status Onset Acute blood loss anemia Acute Chest pain Acute S/P CABG x 2 Acute S/P left atrial appendage ligation Acute
[2018-12-06] MEDS: ceFAZolin 2 GM/DEXTROSE 100 ML IV SCH ×3 (06:58→22:31)
[2018-12-06] MEDS: ONDANSETRON 4 MG/2 ML VIAL IVP PRN ×2 (07:01→13:14)
[2018-12-06] MEDS ORDERED: LISINOPRIL 20 MG TAB PO SCH (09:00)
[2018-12-06] MEDS: MUPIROCIN 2% 22 GM OINT NS SCH ×2 (09:18→21:09)
[2018-12-06] MEDS: traMADol 50 MG TAB PO PRN (13:14)
--- NOTE | 2018-12-06 14:52 | POSTANESTH ---
Post Anesthetic Evaluation Cardiovascular Status: Normal, Stable Respiratory Status: Normal, Stable, Tx Decrease in SpO2 Level of Consciousness/Mental Status: Can Participate in Eval Pain Control: Adequate, Prn Tx Ordered Nausea/Vomiting Control: Adequate, Prn Tx Ordered Complications Possibly Related to Anesthesia: None Noted
[2018-12-06] MEDS: PANTOPRAZOLE SODIUM 40 MG TAB PO SCH (16:18)
[2018-12-06] MEDS: ASPIRIN 81 MG CHEWABLE TAB PO SCH (16:18)
[2018-12-06] MEDS ORDERED: ASPIRIN 81 MG CHEWABLE TAB TUBE PRN (16:39)
--- NOTE | 2018-12-06 17:26 | PDMN ---
Medical Necessity Medical necessity: Change to IP, as of 12/05/18, per PA & MCG S-[id number]; los >2 mn for ongoing management of NSTEMI, unstable angina & severe CAD; requiring urgent CABG
--- NOTE | 2018-12-06 17:48 | HOSPPROG ---
Hospitalist Progress Note Assessment/Plan: DIAGNOSES: * Acute Coronary Syndrome * Diffuse CAD * s/p CABG 12/05; now in ICU extubated with stable vitals, no bleeding, good O2 sats, still in process of waking up * Blood sugar management - is currently doing well on insulin drip * Essential HTN PLANS: * Continue follow sugars, at this time does not need any medication will adjust as necessary * routine post op care per [facility] * ASA, statin SUBJECTIVE: Some pain at chest tube site Intermittently some nausea had some emesis earlier when he tried to take fluids but is keeping water down now after some Zofran A little bit dyspneic with exertion otherwise breathing feels good OBJECTIVE: stable vitals thru night and today Examination: Sitting up in chair wide awake alert oriented talkative Skin warm and dry with good color Chest tube in place to suction, minimal fluid output through the day today, no air leak Incisions all look good no signs of infection or other problems Lungs clear Heart regular no murmur No edema at all in his ankles Lab data: Sugars in good range here so far 110 to 150 Stable renal function electrolytes, white blood cell count up a little bit higher Objective: Vital Signs Temp Pulse Resp BP Pulse Ox 36.8 C 82 18 93/60 L 95 12/06/18 15:51 12/06/18 15:51 12/06/18 15:51 12/06/18 15:51 12/06/18 15:51 Laboratory Results 12/06/18 05:40 12/06/18 16:20 12/05/18 12/06/18 12/07/18 06:59 06:59 06:59 Intake Total 1840 Output Total 9886 635 Balance -485 -635 PT 13.0 SEC (12.0-15.0) 12/04/18 21:46 INR 1.02 (0.83-1.16) 12/04/18 21:46 ICD10 Worksheet Patient Problems: Problems Problem Status Onset Acute blood loss anemia Acute Chest pain Acute S/P CABG x 2 Acute S/P left atrial appendage ligation Acute chronic disease mgmt/transitional care Acute
--- NOTE | 2018-12-06 19:38 | CPEKG ---
Test Reason : OPEN Blood Pressure : / mmHG Vent. Rate : 066 BPM Atrial Rate : 066 BPM P-R Int : 164 ms QRS Dur : 094 ms QT Int : 528 ms P-R-T Axes : 039 -72 051 degrees QTc Int : 554 ms Sinus rhythm Left anterior fascicular block Nonspecific T abnrm, anterolateral leads Prolonged QT interval Confirmed by Ant Gore ([id number]) on 12/06/2018 7:38:26 PM Referred By: José Miguel Hollis Confirmed By:Ant Gore
[2018-12-06] MEDS: SENNOSIDES/DOCUSATE SODIUM TAB PO SCH (21:06)
[2018-12-07] MEDS: traMADol 50 MG TAB PO PRN ×3 (00:01→21:20)
[2018-12-07] MEDS: HYDROCODONE/APAP 5/325 TAB PO PRN ×2 (05:20→17:28)
[2018-12-07] MEDS: ceFAZolin 2 GM/DEXTROSE 100 ML IV SCH (05:21)
[2018-12-07] MEDS: HEPARIN 5,000 UNIT/0.5 ML INJ SC SCH ×3 (05:23→21:13)
[2018-12-07 05:45] LABS: PLATELET COUNT 126 10^3/uL (150-400)
--- NOTE | 2018-12-07 08:03 | SOAPPROG ---
SOAP Progress Note Assessment/Plan: POD #2: urgent CABGx2 (STROUD-LAD, SVG-circ), EVH right leg, suture ligation ANDREW NSTEMI/unstable angina/severe 2-vessel CAD s/p urgent CABGx2 - CTs for another day - BB/ASA/statin for secondary prevention when appropriate Acute post-op blood loss anemia - Stable without the need for transfusions DVT prophylaxis - Heparin SQ, SCDs Disposition - PCU - Plan for home Monday/Monday Subjective: Less incisional pain, denies SOB. Objective: Vital Signs Temp Pulse Resp BP Pulse Ox 36.7 C 78 20 89/60 L 95 12/07/18 07:46 12/07/18 07:46 12/07/18 07:46 12/07/18 07:46 12/07/18 07:46 Laboratory Results 12/07/18 05:25 12/07/18 05:25 12/06/18 12/07/18 12/08/18 05:59 05:59 05:59 Intake Total 1840 1420 Output Total 2325 1955 Balance -485 -535 PT 13.0 SEC (12.0-15.0) 12/04/18 21:46 INR 1.02 (0.83-1.16) 12/04/18 21:46 Physical Exam - Physical Exam General Appearance: WD/WN, alert, no apparent distress EENT: No scleral icterus (R), No scleral icterus (L) Neck: normal inspection Respiratory: No respiratory distress Cardiac/Chest: regular rate, rhythm Abdomen: non-tender, soft, No distended Skin: normal color, warm/dry Extremities: No pedal edema Neuro/Psych: no motor/sensory deficits, alert, normal mood/affect, oriented x 3 ICD10 Worksheet Patient Problems: Problems Problem Status Onset Acute blood loss anemia Acute Chest pain Acute S/P CABG x 2 Acute S/P left atrial appendage ligation Acute chronic disease mgmt/transitional care Acute
--- NOTE | 2018-12-07 09:59 | ASMTCMCOM ---
CM Note CM Note Notes: 12/07/2018 Case Management Note Discussed with Barry Mello this morning. Anticipating d/c on Monday with no needs. Case Management d/c poc: independent with follow up as directed. Case Management available if needs change. Date Signed: 12/07/2018 09:58 AM Electronically Signed By:Brianna Chun RN
[2018-12-07] MEDS: ONDANSETRON DISINTEGRATING 4 MG TAB PO PRN ×2 (10:25→17:25)
[2018-12-07] MEDS: SENNOSIDES/DOCUSATE SODIUM TAB PO SCH ×2 (10:36→21:12)
[2018-12-07] MEDS: PANTOPRAZOLE SODIUM 40 MG TAB PO SCH (10:37)
[2018-12-07] MEDS: ASPIRIN 81 MG CHEWABLE TAB PO SCH (10:37)
[2018-12-07] MEDS: MUPIROCIN 2% 22 GM OINT NS SCH (10:39)
--- NOTE | 2018-12-07 16:09 | HOSPPROG ---
Hospitalist Progress Note Assessment/Plan: DIAGNOSES: * Acute Coronary Syndrome * Diffuse CAD * s/p CABG 12/05; now in ICU extubated with stable vitals, no bleeding, good O2 sats, still in process of waking up * Blood sugar management - is currently doing well on insulin drip * Essential HTN PLANS: * Continue to follow sugars, at this time does not need any medication will adjust as necessary * routine post op care per [facility] * ASA, statin SUBJECTIVE: still w pain at chest tube site but tolerating it better nausea resolved, eating well ambulating well in [place] OBJECTIVE: stable vitals thru night and today, no fever Examination: Sitting up in chair wide awake alert oriented talkative Skin warm and dry with good color Chest tube in place to suction, minimal fluid output through the day today, no air leak Incisions all look good no signs of infection or other problems Lungs clear Heart regular no murmur No edema at all in his ankles Lab data: Sugars in good range here so far 110 to 140s wbc a bit higher, stable Hg and plts Objective: Vital Signs Temp Pulse Resp BP Pulse Ox 36.7 C 97 18 128/80 H 96 12/07/18 11:34 12/07/18 11:34 12/07/18 11:34 12/07/18 11:34 12/07/18 11:34 Laboratory Results 12/07/18 05:25 12/07/18 05:25 12/06/18 12/07/18 12/08/18 06:59 06:59 06:59 Intake Total 1840 1420 525 Output Total 6864 195 Balance -485 -535 525 PT 13.0 SEC (12.0-15.0) 12/04/18 21:46 INR 1.02 (0.83-1.16) 12/04/18 21:46 ICD10 Worksheet Patient Problems: Problems Problem Status Onset Acute blood loss anemia Acute Chest pain Acute S/P CABG x 2 Acute S/P left atrial appendage ligation Acute chronic disease mgmt/transitional care Acute
[2018-12-08] MEDS: traMADol 50 MG TAB PO PRN ×2 (05:45→09:31)
[2018-12-08] MEDS: HEPARIN 5,000 UNIT/0.5 ML INJ SC SCH ×3 (05:46→20:53)
[2018-12-08] MEDS ORDERED: FUROSEMIDE 40 MG/4 ML VIAL IVP ONE (08:18)
[2018-12-08] MEDS: SENNOSIDES/DOCUSATE SODIUM TAB PO SCH ×2 (09:31→20:56)
[2018-12-08] MEDS: ASPIRIN 81 MG CHEWABLE TAB PO SCH (09:31)
[2018-12-08] MEDS: PANTOPRAZOLE SODIUM 40 MG TAB PO SCH (09:31)
[2018-12-08] MEDS: METOPROLOL TARTRATE 25 MG TAB PO SCH ×2 (09:32→20:56)
--- NOTE | 2018-12-08 13:21 | SOAPPROG ---
SOAP Progress Note Assessment/Plan: POD #3: urgent CABGx2 (STROUD-LAD, SVG-circ), EVH right leg, suture ligation ANDREW NSTEMI/unstable angina/severe 2-vessel CAD s/p urgent CABGx2 - CTs and PW to be removed - BB/ASA/statin for secondary prevention when appropriate Acute post-op blood loss anemia - Stable without the need for transfusions DVT prophylaxis - Heparin SQ, SCDs Disposition - PCU - Plan for home without services Monday/Monday Subjective: Pt comfortable without issues. Objective: Vital Signs Temp Pulse Resp BP Pulse Ox 36.8 C 78 18 95/57 L 98 12/08/18 11:10 12/08/18 11:10 12/08/18 11:10 12/08/18 11:10 12/08/18 11:10 Laboratory Results 12/07/18 05:25 12/07/18 05:25 12/07/18 12/08/18 12/09/18 05:59 05:59 05:59 Intake Total 1420 1325 Output Total 1955 500 125 Balance -535 825 -125 PT 13.0 SEC (12.0-15.0) 12/04/18 21:46 INR 1.02 (0.83-1.16) 12/04/18 21:46 Physical Exam - Physical Exam General Appearance: WD/WN, alert, no apparent distress EENT: No scleral icterus (R), No scleral icterus (L) Neck: normal inspection Respiratory: No respiratory distress Cardiac/Chest: regular rate, rhythm Abdomen: non-tender, soft, No distended Skin: normal color, warm/dry Extremities: pedal edema Neuro/Psych: no motor/sensory deficits, alert, normal mood/affect, oriented x 3 ICD10 Worksheet Patient Problems: Problems Problem Status Onset Acute blood loss anemia Acute Chest pain Acute S/P CABG x 2 Acute S/P left atrial appendage ligation Acute chronic disease mgmt/transitional care Acute
--- NOTE | 2018-12-08 18:31 | HOSPPROG ---
Hospitalist Progress Note Assessment/Plan: DIAGNOSES: * Acute Coronary Syndrome * Diffuse CAD * s/p CABG 12/05; now in ICU extubated with stable vitals, no bleeding, good O2 sats, still in process of waking up * Blood sugar management - is currently doing well on insulin drip * Essential HTN PLANS: * Continue to follow sugars, at this time does not need any medication will adjust as necessary * routine post op care per [facility] * ASA, statin SUBJECTIVE: Chest tubes out now Notably less pain No nausea, eating better and walking better OBJECTIVE: stable vitals thru night and today, no fever Examination: Sitting in chair, alert, looks more comfortable Skin warm and dry with good color Incisions all look good no signs of infection or other problems Lungs clear Heart regular no murmur No edema at all in his ankles Lab data: Sugars in good range here so far 110 to 140s Objective: Vital Signs Temp Pulse Resp BP Pulse Ox 36.9 C 74 18 88/56 L 93 12/08/18 15:48 12/08/18 15:48 12/08/18 15:48 12/08/18 15:48 12/08/18 15:48 Laboratory Results 12/07/18 05:25 12/07/18 05:25 12/07/18 12/08/18 12/09/18 06:59 06:59 06:59 Intake Total 1420 1325 675 Output Total 1955 500 975 Balance -535 825 -300 PT 13.0 SEC (12.0-15.0) 12/04/18 21:46 INR 1.02 (0.83-1.16) 12/04/18 21:46 ICD10 Worksheet Patient Problems: Problems Problem Status Onset Acute blood loss anemia Acute Chest pain Acute S/P CABG x 2 Acute S/P left atrial appendage ligation Acute chronic disease mgmt/transitional care Acute
[2018-12-09] MEDS: HEPARIN 5,000 UNIT/0.5 ML INJ SC SCH (05:42)
--- NOTE | 2018-12-09 08:15 | SOAPPROG ---
SOAP Progress Note Assessment/Plan: POD #4: urgent CABGx2 (STROUD-LAD, SVG-circ), EVH right leg, suture ligation ANDREW NSTEMI/unstable angina/severe 2-vessel CAD s/p urgent CABGx2 - BB/ASA/statin for secondary prevention - CTs/FC/PW out Acute post-op blood loss anemia - Stable without the need for transfusions DVT prophylaxis - Heparin SQ, SCDs Disposition - PCU - Home today Subjective: Denies pain/SOB. Feels ready to go home. Objective: Vital Signs Temp Pulse Resp BP Pulse Ox 37.1 C 72 16 90/53 L 94 12/09/18 07:26 12/09/18 07:26 12/09/18 07:26 12/09/18 07:26 12/09/18 07:26 Laboratory Results 12/07/18 05:25 12/07/18 05:25 12/08/18 12/09/18 12/10/18 05:59 05:59 05:59 Intake Total 1325 1075 Output Total 500 2125 Balance 825 -1050 PT 13.0 SEC (12.0-15.0) 12/04/18 21:46 INR 1.02 (0.83-1.16) 12/04/18 21:46 Physical Exam - Physical Exam General Appearance: WD/WN, alert, no apparent distress EENT: No scleral icterus (R), No scleral icterus (L) Neck: normal inspection Respiratory: No respiratory distress Cardiac/Chest: regular rate, rhythm Abdomen: non-tender, soft, No distended Skin: normal color, warm/dry Extremities: pedal edema Neuro/Psych: no motor/sensory deficits, alert, normal mood/affect, oriented x 3 ICD10 Worksheet Patient Problems: Problems Problem Status Onset Acute blood loss anemia Acute Chest pain Acute S/P CABG x 2 Acute S/P left atrial appendage ligation Acute chronic disease mgmt/transitional care Acute
--- NOTE | 2018-12-09 08:46 | PDHOMEO2F ---
Home Oxygen Face to Face Home Orders: I certify that a physician or a nurse practitioner or physician's central supply assistant has had a [id number] encounter with this patient on the date of this order due to the diagnosis listed, which relates to the primary reason the patient requires home oxygen. Alternative treatments have been tried, or considered, and deemed ineffective. It is anticipated that supplemental oxygen will result in improvement with treatment. Home oxygen qualifying diagnosis: hypoxemia, fluid overload, CAD, s/p CABG SpO2 on room air (%): 88 Frequency of home oxygen needed: continuous Home oxygen liters per minute: 2 Home oxygen delivery device: nasal cannula Concentrator: Yes E-tanks for mobility and back up: Yes If ordering portable O2, is the patient mobile in the home?: Yes I certify that, based on these findings, the home oxygen is medically necessary for this patient for the following length of time. Length of time home oxygen needed: 1 month
[2018-12-09] MEDS ORDERED: FUROSEMIDE 40 MG TAB PO ONE (09:30)
[2018-12-09] MEDS ORDERED: POTASSIUM CL 20 MEQ TAB PO SCH (09:30)
--- NOTE | 2018-12-09 09:38 | PDDCSUM ---
Discharge Summary Discharge Summary: ADMISSION DATE: 12/05/18 DISCHARGE DATE: 12/08/18 ADMISSION DIAGNOSES 1. NSTEMI/unstable angina/severe 2-vessel CAD DISCHARGE DIAGNOSES 1. As above 2. Acute post-op blood loss anemia PROCEDURES 12/05/18 (Jess): urgent CABGx2 (STROUD-LAD, SVG-circ), EVH right leg, suture ligation ANDREW HPI 72M with AMI, unstable angina, and severe 2-vessel CAD admitted for urgent surgical revascularization. HOSPITAL COURSE BY PROBLEM LIST 1. NSTEMI/unstable angina/severe 2-vessel CAD 2. Acute post-op blood loss anemia CONDITION Good DISPOSITION Home, self-care PERTINENT DISCHARGE CLINICAL INFORMATION Vitals: 131/76, 76 SR, 94% on 2 LPM O2, +1 KG Exam: NAD, SR, No respiratory distress, ND, soft, NTP, BLE with +1 edema ACTIVITY Pt was instructed on activity limitations and which problems to call [facility] with. Please see Discharge Plan in chart for specifics. DISCHARGE MEDICATIONS As per Home Medication List in [facility] PENDING STUDIES/LABS 1. CXR prior to surgical follow-up FOLLOW-UP 1. Rosalio Crawford (CT Surgery), 12/18/18, 9:45 AM 2. Andres Inman, to be arranged at surgical f/u
[2018-12-09] MEDS: PANTOPRAZOLE SODIUM 40 MG TAB PO SCH (09:45)
[2018-12-09] MEDS: ASPIRIN 81 MG CHEWABLE TAB PO SCH (09:45)
[2018-12-09] MEDS: SENNOSIDES/DOCUSATE SODIUM TAB PO SCH (09:46)
[2018-12-09] MEDS: METOPROLOL TARTRATE 25 MG TAB PO SCH (09:47)
[2018-12-09 11:54] VITALS: BP 105/67
== END 2018-12-09 13:20 | disposition home or self-care (01) | DRG 234 ==
LOC: EDUNIT# → F2W 16:30 → F2N 12-05 14:48 → OBSVTOIN 12-05 16:51 → F2W 12-06 12:30
PROVIDERS: ADMIT Internal Medicine; ATTEND Thoracic Surgery (Cardiothoracic Vascular Surgery)
DX: I21.4 Non-ST elevation (NSTEMI) myocardial infarction (principal); I25.10 Atherosclerotic heart disease of native coronary artery without angina pectoris; D62 Acute posthemorrhagic anemia; I10 Essential (primary) hypertension
CPT/HCPCS: 82435-PO; 82565-PO; 82947-PO; 83605-ER; 84132-PO; 84295-PO; 84484-ER; 84520-PO; 85014-ER; 85520-90; 97116-GP; 97162-GP; 97166-GO; 97530-GP; 97535-GO; C1760; G0378; J0153; J0282; J0461; J0583; J0690; J1100; J1265; J1644; J1815; J1940; J2001; J2150; J2250; J2260; J2270; J2370; J2405; J2440; J2704; J2720; J2930; J3010; J3475; J3480; P9041; Q9967

== ENCOUNTER → 2018-12-18 | Outpatient (CLI) | payer OTHER | LOC: FLAB 08:57 | PROVIDERS: ATTEND Thoracic Surgery (Cardiothoracic Vascular Surgery) | DX: I25.10 Atherosclerotic heart disease of native coronary artery without angina pectoris (principal); Z95.1 Presence of aortocoronary bypass graft ==